=== PATIENT | female | born 1960 | race Caucasian/White ===

== ENCOUNTER 2017-04-10 11:48 | Day surgery (SDC) | payer OTHER ==
[~2017-04-10] VITALS: Ht 162.6 cm; Wt 73.0 kg
[~2017-04-10 11:48] MED LIST: 0.9% Sodium Chloride 1,000 ML IV PRN; CLOB15CR3 TOP; DESO15CR10 TOP; HYDR-3740 PO; OMEP20TA86 PO; Sodium Chloride LOK Flush 10 mL Syringe IV PRN; TRAZ-115 PO; fentaNYL-PF 50 mCg/mL 2 mL Inj IVPUSH PRN
[2017-04-10] MEDS ORDERED: fentaNYL-PF 50 mCg/mL 2 mL Inj IVPUSH ONE (11:49)
[2017-04-10 12:22] VITALS: BP 132/101; PULSE 85; RESP 16; O2SAT 96
[2017-04-10 13:51] VITALS: BP 115/82; PULSE 72; RESP 16; O2SAT 97
[2017-04-10 14:01] VITALS: BP 117/74; PULSE 78; RESP 16; O2SAT 99
[2017-04-10 14:07] VITALS: BP 111/78; PULSE 89; RESP 16; O2SAT 97
--- NOTE | 2017-04-10 14:25 | ENDO ---
[address] [address] ENDOSCOPY PROCEDURE PATIENT: TYSON GAONA : 1960 MR#: [id number] ADMIT: 04/10/2017 JOB ID: [id number] DATE: 04/10/2017 PRIMARY PROVIDER: GALE Salazar PROCEDURE: 1. Esophagogastroduodenoscopy with biopsy. 2. Colonoscopy. INDICATIONS: A 56-year-old female with intermittent chest tightness, a history of reflux and LA grade D erosive esophagitis. She unfortunately did not follow the recommendations from our clinic visit recently and has been re-initiated PPI at this point. She has a family history of a number of cancers and has previously been advised to have colonoscopy every five years. She, therefore, presents for colon cancer screening as well. EQUIPMENT: GIF H 190 and a PCF H 180 AL. SEDATION: 1. 6 mg Versed. 2. 150 mcg fentanyl. COMPLICATIONS: None identified. BOWEL PREPARATION: Fair, adequate examination. PROCEDURAL INFORMATION: After the risks and benefits were explained, written and verbal informed consent was obtained. The patient was brought into the endoscopy suite and placed into the left lateral decubitus position. Sedation was achieved as above. The scope was introduced into the mouth through the bite block, and advanced to the second portion of the duodenum. The scope was slowly withdrawn to carefully examine the mucosa for any defects or lesions. Retroflexed views were accomplished in the stomach. The stomach was decompressed and the scope removed from the patient who tolerated the procedure well. The patient was then turned around. A digital rectal examination accomplished. Mild internal hemorrhoids noted. The scope was introduced into the rectum and advanced to the cecum as identified by the appendiceal orifice and ileocecal valve. The scope was slowly withdrawn to carefully examine the mucosa for any defects or lesions. Retroflexed views were avoided in the rectum. Multiple direct views were made through the dentate line for exclusion of pathology. The colon was decompressed. The scope removed from the patient who tolerated the procedure well. FINDINGS: 1. Duodenum: No significant pathology identified from the bulb through to the second portion. 2. Stomach: The patient had some scattered erosive changes and some rather diffuse erythema consistent with gastropathy. Biopsy was taken for exclusion of H. pylori or other pathology. Otherwise, retroflexed views of the LES were rather unremarkable. 3. Esophagus: The squamocolumnar junction correlated with the top of the gastric folds. The GE junction was at 37 cm from the incisors. The patient had evidence of LA grade D ulcerative esophagitis. Multiple photographs were taken. The remainder of the esophagus appeared unremarkable. I did not appreciate any evidence of neoplastic transformation. 4. Colon: No significant polyps, mass lesions, or inflammatory features identified throughout. ENDOSCOPIC DIAGNOSES: 1. LA grade C erosive and ulcerative esophagitis. 2. Subtle sliding hiatal hernia (not mentioned above). 3. Erosive gastropathy. 4. Hemorrhoids. RECOMMENDATIONS: 1. Await histopathology. 2. The patient is encouraged to resume daily omeprazole therapy. 3. Repeat EGD in 5-6 weeks' time to ensure mucosal healing. 4. Repeat colonoscopy five years considering family history.
--- NOTE | 2017-04-12 10:57 | PATH ---
SURGICAL PATHOLOGY Attending Physician:Lorraine Rodriguez CASE STATUS: Signed Out PATIENT NAME: TYSON GAONA PID: [id number] : 1960 DATE COLLECTED:04/10/2017 00:00 SPECIMEN: Gastric, Biopsy CLINICAL HISTORY: 1. GASTRIC BXS FINAL DIAGNOSIS: 1.GASTRIC BIOPSIES: DIFFUSE MILD CHRONIC GASTRITIS INVOLVING FUNDIC MUCOSA. Negative for evidence of Helicobacter on H&E stains. Negative for intestinal metaplasia. Negative for dysplasia and malignancy. ICD10 K29.70 GROSS DESCRIPTION: The specimen is received in one formalin filled container labeled with the patient's name, sublabeled "gastric" and consists of a 0.3 x 0.2 x 0.2 CM portion of tissue which is entirely submitted in one cassette. 04/11/2017 [facility] MICRO DESCRIPTION: See diagnosis. ICD-9 CODES: CPT CODES: 1: 60405 Electronically Signed Out Fabian Rome MD [facility] Pathology [facility] [address], [place] [address] Technical component performed at [facility], [facility] [address], [place], [address]
== END 2017-04-10 23:59 | disposition home or self-care (01) ==
LOC: END 11:48
PROVIDERS: ATTEND Internal Medicine Gastroenterology
DX: Z12.11 Encounter for screening for malignant neoplasm of colon (principal); Z83.71 Family history of colonic polyps; K64.9 Unspecified hemorrhoids; K29.50 Unspecified chronic gastritis without bleeding; R14.0 Abdominal distension (gaseous); R07.89 Other chest pain; K21.9 Gastro-esophageal reflux disease without esophagitis; M19.90 Unspecified osteoarthritis, unspecified site
CPT/HCPCS: 43239; 99153; G0121; G0500; J2250; J3010; J7030

== ENCOUNTER 2017-05-16 08:49 | Day surgery (SDC) | payer OTHER ==
[~2017-05-16] VITALS: Ht 162.6 cm; Wt 75.8 kg
[~2017-05-16 08:49] MED LIST changes: -0.9% Sodium Chloride 1,000 ML IV PRN; +0.9% Sodium Chloride 1,000 ML IV SCH
[2017-05-16 09:05] VITALS: BP 113/79; PULSE 63; RESP 16; O2SAT 97
[2017-05-16 10:14] VITALS: BP 120/78; PULSE 67; O2SAT 95
[2017-05-16 10:25] VITALS: BP 123/79; PULSE 64; O2SAT 96
--- NOTE | 2017-05-16 10:52 | ENDO ---
[address] [address] ENDOSCOPY PROCEDURE PATIENT: TYSON GAONA : 1960 MR#: [id number] ADMIT: 05/16/2017 JOB ID: [id number] DATE OF PROCEDURE: 05/16/2017 PRIMARY PROVIDER: GALE Salazar PROCEDURE: Esophagogastroduodenoscopy. INDICATIONS: A 56-year-old female with severe esophagitis returning for surveillance to ensure healing. She remains on once daily omeprazole and overall feels great. No further episodes of chest pain. EQUIPMENT: GIF-H180-J. SEDATION: 1. Versed 3 mg. 2. Fentanyl 75 mcg. COMPLICATIONS: None identified. PROCEDURE INFORMATION: After the risks and benefits were explained, written and verbal informed consent was obtained. The patient was brought into the endoscopy suite and placed into the left lateral decubitus position. Sedation was achieved using the above-stated medications with the addition of oxygen via nasal cannula. The scope was introduced into the mouth via the bite block and advanced to the second portion of the duodenum. The scope was slowly withdrawn to carefully examine the mucosa for any defects or lesions. Retroflexed views were accomplished in the stomach. The stomach was decompressed. The scope removed from the patient who tolerated the procedure well. FINDINGS: 1. Duodenum: No pathology identified from the bulb through to the second portion. 2. Stomach: No additional pathology identified. No ulcers, masses, lesions, or outlet obstruction. Retroflexed views of the LES were unremarkable. 3. Esophagus: The squamocolumnar junction correlated nicely with the top of the gastric folds. The GEJ was approximately 36 cm from the incisors. There were no signs of any acute erosive features. There was substantial healing of the previously identified esophagitis. ENDOSCOPIC DIAGNOSES: Healed esophagitis. RECOMMENDATIONS: 1. Continue antireflux therapy for complete symptomatic control. 2. Followup in my office on a p.r.n. basis. 3. Continue to follow up routinely in primary care with GALE Salazar.
== END 2017-05-16 23:59 | disposition home or self-care (01) ==
LOC: END 08:49
PROVIDERS: ATTEND Internal Medicine Gastroenterology
DX: K20.9 Esophagitis, unspecified (principal); Z79.899 Other long term (current) drug therapy; Z88.6 Allergy status to analgesic agent
CPT/HCPCS: 43235; G0500; J2250; J3010; J7030